=== PATIENT | male | born 1970 | race Caucasian/White ===

== ENCOUNTER 2017-10-27 16:46 | Emergency (ER) | payer OTHER ==
[2017-10-27 19:09] VITALS: BP 107/69
--- NOTE | 2017-10-27 19:13 | UC ---
Minor Trauma HPI - HPI Summary HPI Summary: Pt presents with left rib pain progressive x 2 days Pt states got stuck between cow and gate. heard a snapping sound over left ribs. Pt states pain worse with deep breath and palp. No sob, abd pain. no n/v. No ecchymosis. No analgesia since Sat - "I don't like taking meds" no anticoagulants no hematuria No strike head, loc no neck or back pain No other complaints or injuries skin intact Pt's medications reviewed this visit - History of Current Complaint Chief Complaint: UCGeneralIllness Stated Complaint: LEFT SIDE RIB AREA PAIN Time Seen by Provider: 10/27/17 19:10 Hx Obtained From: Patient Onset/Duration: Sudden Onset Onset Of Pain: Immediate Severity Initially: Moderate Severity Currently: Moderate Pain Intensity: 3 Pain Scale Used: 0-10 Numeric Mechanism Of Injury: Blunt Trauma Aggravating Factor(s): Coughing, Deep Breaths, Movement Alleviating Factor(s): Compression - Allergies/Home Medications Allergies/Adverse Reactions: Allergies Allergy/AdvReac Type Severity Reaction Status Date / Time No Known Allergies Allergy Verified 10/27/17 19:02 Home Medications: Home Medications NK [No Home Medications Reported] 10/27/17 [History Confirmed 10/27/17] PMH/Surg Hx/FS Hx/Imm Hx - Surgical History Surgical History: Yes Surgery Procedure, Year, and Place: Back surgery L4/L5 and S1 fusion. Gallbladder - Social History Alcohol Use: None Substance Use Type: None Smoking Status (MU): Never Smoked Tobacco Review of Systems Constitutional: Negative Skin: Negative Eyes: Negative ENT: Negative Respiratory: Other - chest wall pain with deep breath Cardiovascular: Negative Gastrointestinal: Negative Genitourinary: Negative Motor: Negative Neurovascular: Negative Musculoskeletal: Negative Neurological: Negative Psychological: Negative All Other Systems Reviewed And Are Negative: Yes Physical Exam Triage Information Reviewed: Yes Appearance: Well-Appearing, Well-Nourished, Pain Distress - discomfort with movement along left ribs Vital Signs: Initial Vital Signs Temp 97.8 F 10/27/17 19:03 Pulse 62 10/27/17 19:03 Resp 16 10/27/17 19:03 BP 107/69 10/27/17 19:03 Pulse Ox 98 10/27/17 19:03 Vital Signs Reviewed: Yes Eye Exam: Normal Eyes: Positive: Conjunctiva Clear ENT Exam: Normal ENT: Positive: Normal ENT inspection, Hearing grossly normal, Pharynx normal, TMs normal Dental Exam: Normal Neck exam: Normal Neck: Positive: Supple, Nontender, No Lymphadenopathy Respiratory Exam: Normal Respiratory: Positive: Chest non-tender, Lungs clear, Normal breath sounds, No respiratory distress, Other: - + TTP left mid axillary to anterior ribs just inferior to nipple line + point tenderness no step offs, no crepitus Cardiovascular Exam: Normal Cardiovascular: Positive: RRR, No Murmur, Pulses Normal Abdominal Exam: Normal Abdomen Description: Positive: Nontender, No Organomegaly, Soft, Bruit. Negative: CVA Tenderness (R), CVA Tenderness (L) Musculoskeletal Exam: Normal Neurological Exam: Normal Neurological: Positive: Alert Psychological Exam: Normal Skin Exam: Normal Skin: Positive: Other - no ecchymosis, edema Diagnostics - Radiology No standard instances Radiology Interpretation Completed By: Radiologist - no fx, no ptx Re-Evaluation - Re-Evaluation First Eval Comment: reviewed imaging with pt. kaitlin wrap for support. incentive spirometer. motrin/apap. return precautions Minor Trauma Course/Dx - Course Course Of Treatment: Pt with left anterior, mid ax rib pain s.p being pinned by cow 2 days ago. Pt with focal pain - no other concerning finding. pt declined analgesia. will check imaging - Differential Dx/Diagnosis Provider Diagnoses: rib contusion Discharge - Discharge Plan Condition: Stable Disposition: HOME Patient Education Materials: Rib Contusion (ED) Referrals: Juan Merritt [Primary Care Provider] - Additional Instructions: - it is important you take deep, slow breaths several times an hour to prevent pneumonia - alternate ibuprofen (advil, motrin)600mg and tylenol 100mg every 3 hours for pain - okay to wear kaitlin wrap for comfort and support - this should NOT PREVENT you from taking deep breaths. you can also hold a towel or pillow agains your ribs to assist you in taking deep breaths - Contact your doctor to or return with any questions or concerns - shortness of breath, fever, cough or other concerns
--- NOTE | 2017-10-27 20:43 | RAD ---
Indication: Left rib injury. 3 views of left ribs including dual energy PA views of the chest demonstrates no fracture. No pneumothorax is noted. Lung kitchen are clear. IMPRESSION: No fracture of the left ribs is noted. No pneumothorax is noted.
== END 2017-10-27 20:45 | disposition home or self-care (01) ==
LOC: UCCORT 16:46
DX: S20.212A Contusion of left front wall of thorax, initial encounter (principal); W23.0XXA Caught, crushed, jammed, or pinched between moving objects, initial encounter; Y93.9 Activity, unspecified; Y92.79 Other farm location as the place of occurrence of the external cause
CPT/HCPCS: 99212; G0463